=== PATIENT | male | born 1980 | race Two or more races ===

== ENCOUNTER 2019-01-23 04:10 | Emergency (ER) | payer MEDICAID ==
[~2019-01-23] VITALS: Ht 177.8 cm; Wt 77.1 kg
[2019-01-23 04:27] VITALS: BP 140/82
[2019-01-23 05:57] LABS: Basophils # (auto) 0 uL; Basophils % (auto) 0.4 % (0.0-2.0); Eosinophils # (auto) 0.1 uL; Eosinophils % (auto) 0.7 % (0.0-7.0); Hematocrit 29.1 % (41.0-53.0); Hemoglobin 10.2 g/dL (13.5-17.5); Lymphocytes # (auto) 2.3 uL; Lymphocytes % (auto) 30.3 % (10.0-50.0); Mean Corpuscular Hemoglobin 33.1 pg (28.0-32.0); Mean Corpuscular Hgb Conc. 35.1 g/dL (32.0-36.0); Mean Corpuscular Volume 94.2 fL (80.0-100.0); Monocytes # (auto) 0.6 uL; Monocytes % (auto) 7.6 % (0.0-12.0); Neutrophils # (auto) 4.5 uL; Nucleated Red Blood Cells % 0.1 %; Platelet Count (auto) 358 10^3/uL (140-450); Red Blood Cells 3.09 10^6/uL (4.5-5.90); Red Cell Distribution Width 12.6 % (11.8-14.3); White Blood Cell 7.4 10^3/uL (4.4-10.8)
[2019-01-23 06:08] LABS: Albumin 2.8 g/dL (3.4-5.0); Calcium 8.2 mg/dL (8.5-10.1); Potassium 3.8 mmol/L (3.5-5.1)
[2019-01-23 06:10] LABS: BUN/Creatinine Ratio 11.5
[2019-01-23 06:13] LABS: Bilirubin, Total 0.1 mg/dL (0.2-1.0); Total Protein 6.3 g/dL (6.4-8.2)
[2019-01-23] MEDS ORDERED: cefTRIAXone SOD 1,000 MG VL IM ONE (07:15)
== END 2019-01-23 07:50 | disposition home or self-care (01) ==
LOC: ER 04:10
DX: S30.92XD Unspecified superficial injury of abdominal wall, subsequent encounter (principal); F17.210 Nicotine dependence, cigarettes, uncomplicated; X58.XXXD Exposure to other specified factors, subsequent encounter
CPT/HCPCS: 36415; 74176; 80053; 85025; 96372; 99284; J0696

== ENCOUNTER 2021-05-29 11:03 | Emergency (ER) | payer MEDICAID ==
[~2021-05-29] VITALS: Ht 177.8 cm; Wt 90.7 kg
[2021-05-29 11:13] LABS: Urine WBC None Seen /hpf (0 - 3)
[2021-05-29 11:30] LABS: Urine Amorphous Crystal FEW /hpf (None Seen); Urine Bacteria FEW /hpf (None Seen); Urine Blood Negative /uL (Negative); Urine Specific Gravity 1.017 (1.001-1.035)
[2021-05-29 12:32] VITALS: BP 139/100
[2021-05-29] MEDS ORDERED: KETOROLAC TROMETH 60MG/2ML VIAL ONE (13:23)
[2021-05-29] MEDS ORDERED: KETOROLAC TROMETH 60MG/2ML VIAL IM ONE (13:30)
== END 2021-05-29 13:32 | disposition home or self-care (01) ==
LOC: ER 11:03
DX: S39.012A Strain of muscle, fascia and tendon of lower back, initial encounter (principal); F17.210 Nicotine dependence, cigarettes, uncomplicated; X50.1XXA Overexertion from prolonged static or awkward postures, initial encounter; Y93.89 Activity, other specified; Y92.89 Other specified places as the place of occurrence of the external cause; Y99.8 Other external cause status
CPT/HCPCS: 81001; 99283; J1885